=== PATIENT | male | born 1970 | race Caucasian/White ===

== ENCOUNTER 2023-05-10 06:50 | Emergency (ER) | payer OTHER ==
[~2023-05-10] VITALS: Ht 198.1 cm; Wt 96.2 kg
[2023-05-10 07:20] VITALS: BP 140/91; TEMP 98.5; O2SAT 97
== END 2023-05-10 07:21 | disposition home or self-care (01) ==
LOC: ER 06:59
DX: R21 Rash and other nonspecific skin eruption (principal)

== ENCOUNTER 2024-08-01 07:48 | Emergency (ER) | payer OTHER ==
[~2024-08-01] VITALS: Ht 198.1 cm; Wt 95.3 kg
[2024-08-01] MEDS: IV NS 0.9% 500 ML BAG IV ONE (08:13)
[2024-08-01 08:23] LABS: BASOPHILS # (AUTO) 0.1 K/uL (0.0-0.2); BASOPHILS % (AUTO) 0.8 % (0.0-2.0); EOSINOPHILS # (AUTO) 0.6 K/uL (0.0-0.7); EOSINOPHILS % (AUTO) 5.2 % (0.0-6.0); HEMATOCRIT 46 % (39-51); HEMOGLOBIN 15.4 g/dL (13.5-17.5); LYMPHOCYTES # (AUTO) 2.9 K/uL (0.8-4.8); MEAN CORPUSCULAR HEMOGLOBIN 30 PG (26.0-33.0); MEAN CORPUSCULAR HGB CONC 34 g/dl (31.0-36.0); MEAN CORPUSCULAR VOLUME 88 fL (80-96); MONOCYTES # (AUTO) 0.8 K/uL (0.1-1.30); MONOCYTES % (AUTO) 7.7 % (2.0-12.0); NEUTROPHILS # (AUTO) 6.1 K/uL (1.8-8.9); NEUTROPHILS % (AUTO) 58.3 % (43.0-81.0); PLATELET COUNT (AUTO) 264 K/uL (150-450); RED BLOOD CELL COUNT(AUTO) 5.15 MIL/uL (4.5-6.0); RED CELL DISTRIBUTION WIDTH 14.1 % (11.5-15.0); WHITE BLOOD COUNT (AUTO) 10.5 K/uL (4.3-11.0)
[2024-08-01 08:33] LABS: CALCIUM, SERUM 8.9 mg/dL (8.5-10.1); POTASSIUM 3.4 mmol/L (3.5-5.1)
[2024-08-01 09:49] VITALS: BP 159/82; TEMP 97.4; O2SAT 98
== END 2024-08-01 09:53 | disposition home or self-care (01) ==
LOC: ER 07:50
DX: I16.0 Hypertensive urgency (principal); R42 Dizziness and giddiness; I10 Essential (primary) hypertension; Z86.69 Personal history of other diseases of the nervous system and sense organs
CPT/HCPCS: 99284; 93005; 85025; 80048; 36415; J7040